=== PATIENT | female | born 2000 | race Caucasian/White ===

== ENCOUNTER 2022-12-05 20:23 | Emergency (ER) | payer OTHER ==
[2022-12-05 21:25] LABS: SARS-CoV-2 NAA Rapid Test Not Detected (NotDetected)
[2022-12-05 21:43] LABS: #Eosinphils 0.3 10x3/uL (0.0-0.5); #Monocytes 0.7 10x3/uL (0.0-1.1); #Neutrophils 6.4 10x3/uL (1.5-8.4); %Basophils 0.3 % (0.0-2.0); %Eosinophils 3.6 % (0.0-6.0); %Lymphocytes 16.9 % (18.0-47.0); %Monocytes 7.8 % (0.0-10.0); %Neutrophils 71.1 % (40.0-75.0); Hemoglobin 11.3 g/dL (12.0-15.5); Mean Corpuscular HGB CONC 34.3 g/dL (32.0-36.0); Mean Corpuscular Hemoglobin 29.2 pg (27.0-33.0); Mean Platelet Volume 10.2 fl (7.4-10.4); Platelet Count 231 10x3/uL (150-450); RBC Distribution Width 12.7 % (11.5-14.5); Red Blood Cell (RBC) Count 3.87 10x6/uL (3.90-5.03)
[2022-12-05 21:53] LABS: ALT (SGPT) 17 U/L (8-55); AST (SGOT) 19 U/L (5-34); Alkaline Phosphatase 59 U/L (40-110); Anion Gap 15 mmol/L (10-20); BUN (Urea Nitrogen) 5 mg/dL (7.0-18.7); Bilirubin, Total 0.2 mg/dL (0.2-1.2); Calc. Creatinine Clearance 0 mL/min (70-130); Calcium 8.8 mg/dL (7.8-10.44); Carbon Dioxide 19 mmol/L (22-29); Chloride 106 mmol/L (98-107); Estimated GFR 133; Globulin 2.8 g/dL (2.4-3.5); Glucose 77 mg/dL (70-105); Potassium 3.8 mmol/L (3.5-5.1); Protein, Total 6.8 g/dL (6.0-8.3); Sodium 136 mmol/L (136-145)
== END 2022-12-06 00:08 | disposition home or self-care (01) ==
LOC: CSHERS 20:23
DX: O99.512 Diseases of the respiratory system complicating pregnancy, second trimester (principal); J06.9 Acute upper respiratory infection, unspecified; Z3A.16 16 weeks gestation of pregnancy; Z20.822 Contact with and (suspected) exposure to COVID-19
CPT/HCPCS: 36415; 71045; 71275; 80053; 83880; 84484; 85025; 85379

== ENCOUNTER 2023-03-24 12:12 | Day surgery (SDC) | payer OTHER ==
[2023-03-24 12:43] VITALS: BMI 46.5
[2023-03-24] MEDS ORDERED: hydrALAZINE 20 MG/ML VIAL SLOW IVP PRN (13:13)
[2023-03-24 14:11] LABS: Protein, Urine Random Quant Less than 10 mg/dL (1-14)
[2023-03-24 16:13] LABS: #Eosinphils 0.2 10x3/uL (0.0-0.5); #Monocytes 0.5 10x3/uL (0.0-1.1); #Neutrophils 7.2 10x3/uL (1.5-8.4); %Basophils 0.3 % (0.0-2.0); %Eosinophils 2.1 % (0.0-6.0); %Lymphocytes 17.3 % (18.0-47.0); %Monocytes 5.5 % (0.0-10.0); %Neutrophils 74.1 % (40.0-75.0); Hemoglobin 10.2 g/dL (12.0-15.5); Mean Corpuscular HGB CONC 33.8 g/dL (32.0-36.0); Mean Corpuscular Hemoglobin 28.1 pg (27.0-33.0); Mean Corpuscular Volume 83.2 fl (81.6-98.3); Mean Platelet Volume 10.8 fl (7.4-10.4); Platelet Count 247 10x3/uL (150-450); RBC Distribution Width 13.1 % (11.5-14.5); Red Blood Cell (RBC) Count 3.63 10x6/uL (3.90-5.03); White Blood Cell (WBC) Count 9.7 10x3/uL (3.5-10.5)
[2023-03-24 16:24] LABS: ALT (SGPT) 12 U/L (8-55); AST (SGOT) 15 U/L (5-34); Albumin 3.7 g/dL (3.5-5.0); Alkaline Phosphatase 107 U/L (40-110); Anion Gap 14 mmol/L (10-20); BUN (Urea Nitrogen) 4 mg/dL (7.0-18.7); Bilirubin, Total 0.3 mg/dL (0.2-1.2); Calc. Creatinine Clearance 314 mL/min (70-130); Carbon Dioxide 22 mmol/L (22-29); Chloride 105 mmol/L (98-107); Estimated GFR 134; Globulin 2.5 g/dL (2.4-3.5); Glucose 74 mg/dL (70-105); Potassium 3.9 mmol/L (3.5-5.1); Protein, Total 6.2 g/dL (6.0-8.3); Sodium 137 mmol/L (136-145)
== END 2023-03-24 16:44 | disposition home or self-care (01) ==
LOC: CSHLD/OP 12:12
PROVIDERS: ATTEND Family Medicine
DX: O99.891 Other specified diseases and conditions complicating pregnancy (principal); O12.03 Gestational edema, third trimester; Z79.899 Other long term (current) drug therapy; Z3A.31 31 weeks gestation of pregnancy
CPT/HCPCS: 80053; 82570; 84156; 85025; 99284

== ENCOUNTER 2023-04-05 13:40 | Outpatient (CLI) | payer OTHER | END 2023-04-05 13:41 | disposition home or self-care (01) | LOC: CSHULT 13:40 | PROVIDERS: ATTEND Family Medicine | DX: Z34.02 Encounter for supervision of normal first pregnancy, second trimester (principal); Z3A.33 33 weeks gestation of pregnancy | CPT/HCPCS: 76805 ==

== ENCOUNTER 2023-04-13 17:12 | Day surgery (SDC) | payer OTHER ==
[2023-04-13 17:48] VITALS: BMI 46.2
[2023-04-13] MEDS ORDERED: hydrALAZINE 20 MG/ML VIAL SLOW IVP PRN (18:05)
== END 2023-04-13 20:01 | disposition home or self-care (01) ==
LOC: CSHLD/OP 17:12
PROVIDERS: ATTEND Family Medicine
DX: O36.8130 Decreased fetal movements, third trimester, not applicable or unspecified (principal); Z3A.34 34 weeks gestation of pregnancy
CPT/HCPCS: 76819

== ENCOUNTER 2023-05-21 15:54 | Inpatient (IN) | payer OTHER ==
[~2023-05-21 15:54] MED LIST: hydrALAZINE 20 MG/ML VIAL SLOW IVP PRN
[2023-05-24 09:40] VITALS: BMI 48.6
[2023-05-24] MEDS ORDERED: hydrALAZINE 20 MG/ML VIAL SLOW IVP PRN (09:46)
[2023-05-24] MEDS ORDERED: Methylergonovine 0.2 MG/ML VIAL IM PRN (09:46)
[2023-05-24] MEDS ORDERED: Acetaminophen 500 MG TAB PO PRN (09:46)
[2023-05-24] MEDS ORDERED: Ondansetron PF 4 MG/2 ML Vial IVP PRN ×2 (09:46→11:35)
[2023-05-24] MEDS ORDERED: Diphenoxylate HCl/Atropine Tablet PO PRN (09:46)
[2023-05-24] MEDS ORDERED: Promethazine HCl 25 MG/ML VIAL IM PRN ×2 (09:46→11:35)
[2023-05-24] MEDS ORDERED: HYDROcodone/Acetaminophen 5/325 mg Tablet PO PRN (09:46)
[2023-05-24] MEDS ORDERED: Lidocaine 1% (PF) 30 ML VIAL SC PRN (09:46)
[2023-05-24] MEDS ORDERED: fentaNYL 50 mcg/mL 1 mL Vial SLOW IVP PRN (09:46)
[2023-05-24] MEDS ORDERED: Misoprostol 200 MCG TAB PR PRN (09:46)
[2023-05-24] MEDS ORDERED: Tranexamic Acid 1,000 MG/10 ML VIAL IVP PRN (09:46)
[2023-05-24] MEDS ORDERED: Ibuprofen 800 MG TAB PO PRN (09:46)
[2023-05-24] MEDS ORDERED: Carboprost 250 MCG/ML AMP IM PRN (09:46)
[2023-05-24] MEDS ORDERED: Lactated Ringer's 1,000 ML IV SCH (10:00)
[2023-05-24] MEDS ORDERED: Oxytocin 30 units/NS 500 ML 500 ML IV SCH ×3 (10:00)
[2023-05-24 10:17] LABS: Hematocrit 30.2 % (34.9-44.5); Hemoglobin 9.8 g/dL (12.0-15.5); Mean Corpuscular HGB CONC 32.5 g/dL (32.0-36.0); Mean Corpuscular Volume 83.2 fl (81.6-98.3); Mean Platelet Volume 11.7 fl (7.4-10.4); Platelet Count 236 10x3/uL (150-450); RBC Distribution Width 14.6 % (11.5-14.5); Red Blood Cell (RBC) Count 3.63 10x6/uL (3.90-5.03); White Blood Cell (WBC) Count 8.7 10x3/uL (3.5-10.5)
[2023-05-24] MEDS ORDERED: fentaNYL/Ropivacaine Epidural 100 ML ONE (10:49)
[2023-05-24 10:52] LABS: HBSAg Index 0.16 S/CO (0-0.99); Hep B Surf Ag - L&D Non-Reactive S/CO (NonReactive)
[2023-05-24 10:53] LABS: Syphilis Antibody Nonreactive (Nonreactive); Syphilis Antibody Index 0.04 S/CO (<1.00 Non-Reactive)
[2023-05-24] MEDS ORDERED: Acetaminophen 325 MG TAB PO PRN (11:35)
[2023-05-24] MEDS ORDERED: diphenhydrAMINE 50 MG/ML VIAL IVP PRN (11:35)
[2023-05-24] MEDS ORDERED: Moisturizing Cream (Eucerin) 113 GM JAR TOP PRN (11:35)
[2023-05-24] MEDS ORDERED: ePHEDrine Sulfate 50 MG/10 ML VIAL SLOW IVP PRN (11:35)
[2023-05-24] MEDS ORDERED: Naloxone HCl 0.4 mg/ml Vial IVP PRN ×2 (11:35)
[2023-05-24] MEDS ORDERED: Lactated Ringer's 500 ML IV PRN (11:35)
[2023-05-24] MEDS ORDERED: fentaNYL 2 mcg/Ropivacaine 0.2% Epidural 100 ML CADD EPIDURAL SCH (11:45)
[2023-05-24] MEDS ORDERED: Communication Order-Pharmacy FS SCH (11:45)
[2023-05-24] MEDS ORDERED: Bupivacaine 0.25% HCL 30 ML VIAL ONE (14:00)
[2023-05-24] MEDS ORDERED: Bupivacaine PF 0.5% 30 ML VIAL ONE (14:00)
[2023-05-24 16:27] LABS: HBSAB Concentration Less than 8.00 mIU/mL; Hep B Surf AB Non-Reactive (NonReactive)
[2023-05-24] MEDS ORDERED: fentaNYL 50 mcg/mL 1 mL Vial ONE (21:19)
[2023-05-25] MEDS ORDERED: fentaNYL 50 mcg/mL 1 mL Vial ONE ×2 (00:06→01:40)
[2023-05-25] MEDS ORDERED: CEFAZOLIN 2 GM VIAL ONE (01:39)
[2023-05-25] MEDS ORDERED: Azithromycin 500 MG VIAL ONE (01:39)
[2023-05-25] MEDS ORDERED: Morphine PF 10 MG/10 ML VIAL ONE (01:40)
[2023-05-25] MEDS ORDERED: Ondansetron PF 4 MG/2 ML Vial ONE (01:47)
[2023-05-25] MEDS ORDERED: Dexamethasone 4 mg/ml Vial ONE (01:47)
[2023-05-25] MEDS ORDERED: Oxytocin 10 UNITS/ML VIAL ONE ×2 (01:47→02:48)
[2023-05-25] MEDS ORDERED: PHENYLEPHRINE-NS 100 MCG/ML 10 ML SYRINGE ONE (02:09)
[2023-05-25] MEDS ORDERED: Promethazine HCl 25 MG/ML VIAL IM PRN ×2 (03:12→07:41)
[2023-05-25] MEDS ORDERED: Ondansetron PF 4 MG/2 ML Vial IVP PRN ×3 (03:12→07:41)
[2023-05-25] MEDS ORDERED: Meperidine HCl/PF 25 MG/ML VIAL SLOW IVP PRN (03:12)
[2023-05-25] MEDS ORDERED: Moisturizing Cream (Eucerin) 113 GM JAR TOP PRN (03:12)
[2023-05-25] MEDS ORDERED: fentaNYL 50 mcg/mL 1 mL Vial SLOW IVP PRN (03:12)
[2023-05-25] MEDS ORDERED: Ketorolac Tromethamine 30 MG/ML VIAL IVP PRN (03:12)
[2023-05-25] MEDS ORDERED: Naloxone HCl 0.4 mg/ml Vial IV PRN (03:12)
[2023-05-25] MEDS ORDERED: HYDROmorphone 0.5 MG/0.5 ML SYRINGE SLOW IVP PRN (03:12)
[2023-05-25] MEDS ORDERED: Naloxone HCl 0.4 mg/ml Vial IVP PRN ×2 (03:12)
[2023-05-25] MEDS ORDERED: Promethazine HCl 25 MG SUPP PR PRN (03:12)
[2023-05-25] MEDS ORDERED: diphenhydrAMINE 50 MG/ML VIAL IVP PRN (03:12)
[2023-05-25] MEDS ORDERED: Communication Order-Pharmacy FS SCH (03:15)
[2023-05-25] MEDS ORDERED: Ketorolac Tromethamine 30 MG/ML VIAL IVP SCH (03:15)
[2023-05-25 06:56] LABS: Hematocrit 28.5 % (34.9-44.5); Hemoglobin 9.2 g/dL (12.0-15.5); Mean Corpuscular HGB CONC 32.3 g/dL (32.0-36.0); Mean Corpuscular Volume 83.6 fl (81.6-98.3); Mean Platelet Volume 11.4 fl (7.4-10.4); Platelet Count 237 10x3/uL (150-450); RBC Distribution Width 14.7 % (11.5-14.5); Red Blood Cell (RBC) Count 3.41 10x6/uL (3.90-5.03); White Blood Cell (WBC) Count 14.6 10x3/uL (3.5-10.5)
[2023-05-25] MEDS ORDERED: Lanolin Ointment 7 GM TUBE TOP PRN (07:41)
[2023-05-25] MEDS ORDERED: Boostrix 0.5 ML (Tdap) VIAL (>/=7 yrs of age) IM ONE (07:41)
[2023-05-25] MEDS ORDERED: diphenhydrAMINE 25 MG CAP PO PRN (07:41)
[2023-05-25] MEDS ORDERED: Meperidine HCl/PF 25 MG/ML VIAL IM PRN (07:41)
[2023-05-25] MEDS ORDERED: hydrALAZINE 20 MG/ML VIAL SLOW IVP PRN (07:41)
[2023-05-25] MEDS ORDERED: Bisacodyl 10 MG SUPP PR PRN (07:41)
[2023-05-25 08:35] LABS: D-Dimer Test 2.33 mg/L FEU (0.19-0.50); INR-International Normal Ratio 0.9; PTT 29.3 sec (22.0-33.0); Prothrombin Time 9.7 sec (9.5-12.1)
[2023-05-25] MEDS: Docusate 100 MG CAP PO SCH ×2 (10:28→20:33)
[2023-05-25] MEDS: Ferrous Sulfate 325 MG TAB PO SCH ×2 (10:29→20:33)
[2023-05-25] MEDS: Prenatal Vitamin 1 TAB PO SCH (10:29)
[2023-05-25] MEDS: Ketorolac Tromethamine 30 MG/ML VIAL IVP SCH ×3 (10:33→23:34)
[2023-05-25] MEDS ORDERED: HYDROcodone/Acetaminophen 5/325 mg Tablet PO PRN (15:15)
[2023-05-25] MEDS: HYDROcodone/Acetaminophen 5/325 mg Tablet PO PRN ×2 (17:25→23:35)
[2023-05-25] MEDS: Simethicone Chewable 80 MG TAB PO PRN (17:26)
[2023-05-26] MEDS: HYDROcodone/Acetaminophen 5/325 mg Tablet PO PRN ×4 (04:25→20:50)
[2023-05-26] MEDS: Ketorolac Tromethamine 30 MG/ML VIAL IVP SCH (04:28)
[2023-05-26 04:51] LABS: Hematocrit 22.2 % (34.9-44.5); Hemoglobin 7.2 g/dL (12.0-15.5); Mean Corpuscular HGB CONC 32.4 g/dL (32.0-36.0); Mean Corpuscular Hemoglobin 27.4 pg (27.0-33.0); Mean Corpuscular Volume 84.4 fl (81.6-98.3); Mean Platelet Volume 11.4 fl (7.4-10.4); Platelet Count 216 10x3/uL (150-450); Red Blood Cell (RBC) Count 2.63 10x6/uL (3.90-5.03)
[2023-05-26] MEDS: Docusate 100 MG CAP PO SCH ×2 (08:52→20:50)
[2023-05-26] MEDS: Prenatal Vitamin 1 TAB PO SCH (08:52)
[2023-05-26] MEDS: Ibuprofen 800 MG TAB PO SCH ×2 (08:52→15:57)
[2023-05-26] MEDS: Ferrous Sulfate 325 MG TAB PO SCH ×2 (10:37→20:50)
[2023-05-26] MEDS: Simethicone Chewable 80 MG TAB PO PRN (15:59)
[2023-05-27 00:43] LABS: #Eosinphils 0.2 10x3/uL (0.0-0.5); #Monocytes 0.6 10x3/uL (0.0-1.1); #Neutrophils 7.5 10x3/uL (1.5-8.4); %Basophils 0.2 % (0.0-2.0); %Eosinophils 1.5 % (0.0-6.0); %Lymphocytes 15.4 % (18.0-47.0); %Monocytes 6.3 % (0.0-10.0); %Neutrophils 75.8 % (40.0-75.0); Hemoglobin 6.9 g/dL (12.0-15.5); Mean Corpuscular HGB CONC 32.9 g/dL (32.0-36.0); Mean Corpuscular Hemoglobin 27.8 pg (27.0-33.0); Mean Corpuscular Volume 84.7 fl (81.6-98.3); Mean Platelet Volume 10.9 fl (7.4-10.4); Platelet Count 235 10x3/uL (150-450); RBC Distribution Width 15.3 % (11.5-14.5); Red Blood Cell (RBC) Count 2.48 10x6/uL (3.90-5.03); White Blood Cell (WBC) Count 9.9 10x3/uL (3.5-10.5)
[2023-05-27] MEDS: HYDROcodone/Acetaminophen 5/325 mg Tablet PO PRN ×5 (01:17→23:48)
[2023-05-27] MEDS: Ibuprofen 800 MG TAB PO SCH ×4 (01:18→23:49)
[2023-05-27 04:31] LABS: Bilirubin Neg (Negative); Blood, Urine 250 (Negative); Clarity Slightly Cloudy (Clear); Glucose, Urine (Dipstick) Normal (Negative); Ketone, Urine Negative (Negative); Leukocyte 100 (Negative); Nitrite Negative (Negative); Protein, Urine (Dipstick) 30 mg/dl (Neg-Trace); Specific Gravity, Urine 1.015 (1.005-1.030); Urobilinogen Normal mg/dL (Less than 2)
[2023-05-27 04:52] LABS: Bacteria/HPF 1+ HPF (None Seen); RBC/HPF Greater than 50 HPF (0-3); WBC/HPF Greater Than 50 HPF (0-3)
[2023-05-27] MEDS: Prenatal Vitamin 1 TAB PO SCH (09:00)
[2023-05-27] MEDS: Ferrous Sulfate 325 MG TAB PO SCH ×2 (09:00→22:33)
[2023-05-27] MEDS: Docusate 100 MG CAP PO SCH ×2 (09:04→22:33)
[2023-05-27] MEDS: cefTRIAXone\\ROCEPHIN 2 GM in Sodium Chloride 0.9% 100 ML IVPB SCH (09:34)
[2023-05-27] MEDS: Simethicone Chewable 80 MG TAB PO PRN (19:43)
[2023-05-28] MEDS: HYDROcodone/Acetaminophen 5/325 mg Tablet PO PRN ×4 (03:48→17:18)
[2023-05-28 08:20] VITALS: TEMP 98.9
[2023-05-28] MEDS: Ferrous Sulfate 325 MG TAB PO SCH (08:55)
[2023-05-28] MEDS: Prenatal Vitamin 1 TAB PO SCH (08:55)
[2023-05-28] MEDS: Docusate 100 MG CAP PO SCH (08:55)
[2023-05-28] MEDS: cefTRIAXone\\ROCEPHIN 2 GM in Sodium Chloride 0.9% 100 ML IVPB SCH (09:00)
[2023-05-28] MEDS: Ibuprofen 800 MG TAB PO SCH ×2 (09:12→17:18)
[2023-05-28 12:48] VITALS: BP 137/61
== END 2023-05-28 17:45 | disposition home or self-care (01) | DRG 787 ==
LOC: CSHLD 05-24 08:57 → CSHPP 05-25 08:30
PROVIDERS: ADMIT Family Medicine; ATTEND Family Medicine
PROC: 10H07YZ Insertion of Other Device into Products of Conception, Via Natural or Artificial Opening (ICD-10-PCS; 2023-05-24)
PROC: 10D00Z1 Extraction of Products of Conception, Low, Open Approach (ICD-10-PCS; principal; 2023-05-25)
DX: O42.02 Full-term premature rupture of membranes, onset of labor within 24 hours of rupture (principal); B00.89 Other herpesviral infection; O98.52 Other viral diseases complicating childbirth; O72.1 Other immediate postpartum hemorrhage; O86.20 Urinary tract infection following delivery, unspecified; N39.0 Urinary tract infection, site not specified; O32.4XX0 Maternal care for high head at term, not applicable or unspecified; O48.0 Post-term pregnancy; Z37.0 Single live birth; O99.214 Obesity complicating childbirth; E66.01 Morbid (severe) obesity due to excess calories; Z3A.40 40 weeks gestation of pregnancy
CPT/HCPCS: 36415; 51701; 51702; 81003; 81015; 85025; 85027; 85049; 85300; 85362; 85379; 85384; 85610; 85730; 86706; 86780; 86850; 86900; 86901; 87340; J0696; J1100; J1200; J1885; J2274; J2405; J2590; J3010; J3490; S0020

== ENCOUNTER 2023-05-31 21:56 | Emergency (ER) | payer OTHER ==
[~2023-05-31 21:56] MED LIST changes: +Iopamidol 300 61% 100 ML VIAL FS ONE; -hydrALAZINE 20 MG/ML VIAL SLOW IVP PRN
[2023-05-31] MEDS ORDERED: Morphine 4 MG/ML VIAL ONE (22:44)
[2023-05-31] MEDS ORDERED: Ondansetron PF 4 MG/2 ML Vial ONE (22:44)
[2023-05-31 23:20] LABS: Bilirubin Neg (Negative); Blood, Urine 250 (Negative); Clarity Cloudy (Clear); Glucose, Urine (Dipstick) Normal (Negative); Ketone, Urine Negative (Negative); Leukocyte 500 (Negative); Nitrite Negative (Negative); Protein, Urine (Dipstick) 100 mg/dl (Neg-Trace); Urobilinogen Normal mg/dL (Less than 2)
[2023-05-31 23:35] LABS: CAUTI Indications for Culture Pelvic or flank pain; RBC/HPF Greater than 50 HPF (0-3)
[2023-05-31 23:36] LABS: Bacteria/HPF 2+ HPF (None Seen); Squamous Epithelial 0-3 HPF (0-3)
[2023-05-31 23:37] LABS: Urine Culture Reflex No No
[2023-05-31 23:43] LABS: #Eosinphils 0.2 10x3/uL (0.0-0.5); #Monocytes 0.7 10x3/uL (0.0-1.1); %Basophils 0.4 % (0.0-2.0); %Eosinophils 2.4 % (0.0-6.0); %Lymphocytes 13.8 % (18.0-47.0); %Monocytes 7.1 % (0.0-10.0); %Neutrophils 72.2 % (40.0-75.0); Hematocrit 22.7 % (34.9-44.5); Hemoglobin 7.3 g/dL (12.0-15.5); Mean Corpuscular HGB CONC 32.2 g/dL (32.0-36.0); Mean Corpuscular Hemoglobin 26.6 pg (27.0-33.0); Mean Corpuscular Volume 82.8 fl (81.6-98.3); Mean Platelet Volume 9.8 fl (7.4-10.4); Platelet Count 443 10x3/uL (150-450); RBC Distribution Width 14.6 % (11.5-14.5); Red Blood Cell (RBC) Count 2.74 10x6/uL (3.90-5.03); White Blood Cell (WBC) Count 9.6 10x3/uL (3.5-10.5)
[2023-05-31 23:55] LABS: ALT (SGPT) 11 U/L (8-55); AST (SGOT) 12 U/L (5-34); Albumin 3.4 g/dL (3.5-5.0); Alkaline Phosphatase 114 U/L (40-110); Anion Gap 18 mmol/L (10-20); BUN (Urea Nitrogen) 13 mg/dL (7.0-18.7); Bilirubin, Total Less than 0.2 mg/dL (0.2-1.2); Calc. Creatinine Clearance 0 mL/min (70-130); Calcium 9.3 mg/dL (7.8-10.44); Carbon Dioxide 21 mmol/L (22-29); Chloride 105 mmol/L (98-107); Estimated GFR 127; Globulin 3.6 g/dL (2.4-3.5); Glucose 80 mg/dL (70-105); Lipase 16 U/L (8-78); Potassium 3.8 mmol/L (3.5-5.1); Sodium 140 mmol/L (136-145)
[2023-06-01] MEDS ORDERED: cefTRIAXone (ROCEPHIN) 2 GM VIAL ONE (00:18)
== END 2023-06-01 01:01 | disposition home or self-care (01) ==
LOC: CSHERS 21:56
DX: R10.30 Lower abdominal pain, unspecified (principal); D64.9 Anemia, unspecified; Z48.89 Encounter for other specified surgical aftercare
CPT/HCPCS: 36415; 74177; 80053; 81001; 83605; 83690; 85025; 87040; 87086; 96365; 96375; J0696; J2270; J2405; Q9967

== ENCOUNTER 2023-09-22 08:14 | Emergency (ER) | payer OTHER ==
[2023-09-22] MEDS ORDERED: Ketorolac Tromethamine 30 MG (1 mL) VIAL ONE (09:16)
[2023-09-22 10:38] LABS: #Eosinphils 0.3 10x3/uL (0.0-0.5); #Monocytes 0.4 10x3/uL (0.0-1.1); #Neutrophils 3.1 10x3/uL (1.5-8.4); %Basophils 0.5 % (0.0-2.0); %Eosinophils 4.2 % (0.0-6.0); %Lymphocytes 38.7 % (18.0-47.0); %Monocytes 6.5 % (0.0-10.0); %Neutrophils 49.8 % (40.0-75.0); Hematocrit 35.3 % (34.9-44.5); Hemoglobin 11.4 g/dL (12.0-15.5); Mean Corpuscular HGB CONC 32.3 g/dL (32.0-36.0); Mean Corpuscular Volume 74.3 fl (81.6-98.3); Mean Platelet Volume 10.2 fl (7.4-10.4); Platelet Count 353 10x3/uL (150-450); RBC Distribution Width 16.6 % (11.5-14.5); Red Blood Cell (RBC) Count 4.75 10x6/uL (3.90-5.03); White Blood Cell (WBC) Count 6.1 10x3/uL (3.5-10.5)
[2023-09-22 10:56] LABS: ALT (SGPT) 36 U/L (8-55); AST (SGOT) 20 U/L (5-34); Albumin 4.6 g/dL (3.5-5.0); Alkaline Phosphatase 99 U/L (40-110); Anion Gap 13 mmol/L (10-20); BUN (Urea Nitrogen) 16 mg/dL (7.0-18.7); Bilirubin, Total 0.3 mg/dL (0.2-1.2); Calc. Creatinine Clearance 0 mL/min (70-130); Calcium 9.2 mg/dL (7.8-10.44); Carbon Dioxide 24 mmol/L (22-29); Chloride 107 mmol/L (98-107); Estimated GFR 127; Globulin 2.9 g/dL (2.4-3.5); Glucose 87 mg/dL (70-105); Lipase 26 U/L (8-78); Potassium 4.3 mmol/L (3.5-5.1); Protein, Total 7.5 g/dL (6.0-8.3); Sodium 140 mmol/L (136-145)
[2023-09-22 11:00] LABS: Troponin I Less than 0.010 ng/mL (< 0.028)
[2023-09-22 11:01] LABS: Microcytosis SLIGHT = 6-15 cells (100X) (0-5/hpf); Platelet Adequacy Comment Appears Adequate
== END 2023-09-22 11:37 | disposition home or self-care (01) ==
LOC: CSHERS 08:14
DX: K80.70 Calculus of gallbladder and bile duct without cholecystitis without obstruction (principal); K76.0 Fatty (change of) liver, not elsewhere classified
CPT/HCPCS: 71045; 76705; 80053; 83690; 83880; 84484; 85025; 93005; 96374; J1885

== ENCOUNTER 2023-09-23 06:29 | Emergency (ER) | payer OTHER ==
[2023-09-23 07:24] LABS: ALT (SGPT) 58 U/L (8-55); AST (SGOT) 75 U/L (5-34); Albumin 4.3 g/dL (3.5-5.0); Alkaline Phosphatase 125 U/L (40-110); Anion Gap 16 mmol/L (10-20); BUN (Urea Nitrogen) 16 mg/dL (7.0-18.7); Bilirubin, Total 0.3 mg/dL (0.2-1.2); Calc. Creatinine Clearance 0 mL/min (70-130); Calcium 9.1 mg/dL (7.8-10.44); Carbon Dioxide 21 mmol/L (22-29); Chloride 107 mmol/L (98-107); Estimated GFR 127; Globulin 2.9 g/dL (2.4-3.5); Glucose 105 mg/dL (70-105); Lipase 34 U/L (8-78); Potassium 3.9 mmol/L (3.5-5.1); Protein, Total 7.2 g/dL (6.0-8.3); Sodium 140 mmol/L (136-145)
[2023-09-23] MEDS ORDERED: Ondansetron PF 4 MG/2 ML Vial ONE (07:51)
[2023-09-23] MEDS ORDERED: Ketorolac Tromethamine 30 MG (1 mL) VIAL ONE (07:51)
[2023-09-23 08:22] LABS: #Eosinphils 0.2 10x3/uL (0.0-0.5); #Monocytes 0.4 10x3/uL (0.0-1.1); #Neutrophils 4.7 10x3/uL (1.5-8.4); %Basophils 0.3 % (0.0-2.0); %Eosinophils 2.8 % (0.0-6.0); %Lymphocytes 21.8 % (18.0-47.0); %Monocytes 6.1 % (0.0-10.0); %Neutrophils 68.7 % (40.0-75.0); Hematocrit 35.7 % (34.9-44.5); Hemoglobin 11.5 g/dL (12.0-15.5); Mean Corpuscular HGB CONC 32.2 g/dL (32.0-36.0); Mean Corpuscular Hemoglobin 24.2 pg (27.0-33.0); Mean Corpuscular Volume 75.2 fl (81.6-98.3); Mean Platelet Volume 10.3 fl (7.4-10.4); Platelet Count 327 10x3/uL (150-450); RBC Distribution Width 16.8 % (11.5-14.5); Red Blood Cell (RBC) Count 4.75 10x6/uL (3.90-5.03); White Blood Cell (WBC) Count 6.9 10x3/uL (3.5-10.5)
== END 2023-09-23 09:05 | disposition home or self-care (01) ==
LOC: CSHERS 06:29
DX: K80.20 Calculus of gallbladder without cholecystitis without obstruction (principal); K80.50 Calculus of bile duct without cholangitis or cholecystitis without obstruction; Z55.6 Problems related to health literacy; K80.70 Calculus of gallbladder and bile duct without cholecystitis without obstruction; K76.0 Fatty (change of) liver, not elsewhere classified
CPT/HCPCS: 71045; 76705; 80053; 83690; 83880; 84484; 85025; 93005; 96361; 96374; 96375; J1885; J2405

== ENCOUNTER 2024-08-22 22:06 | Emergency (ER) | payer OTHER, SELFPAY ==
[2024-08-22] MEDS ORDERED: Azithromycin 250 MG TAB ONE (22:59)
[2024-08-22] MEDS ORDERED: predniSONE 20 MG TAB ONE (22:59)
== END 2024-08-22 23:15 | disposition home or self-care (01) ==
LOC: CSHERS 22:06
DX: J01.00 Acute maxillary sinusitis, unspecified (principal)
CPT/HCPCS: 99283; J7512